=== PATIENT | male | born 1950 | race Caucasian/White ===

== ENCOUNTER 2017-03-22 14:00 | Inpatient (IN) | payer OTHER ==
[~2017-03-22] VITALS: Ht 172.7 cm; Wt 79.4 kg
[2017-03-22 14:01] VITALS: BP 141/77
[2017-03-22] MEDS ORDERED: CIALIS5 MG PO (14:27)
[2017-03-22] MEDS ORDERED: PRILOSEC 10MG C10 MG PO (14:27)
[2017-03-22] MEDS ORDERED: FISH OIL 1,001000 M2 PO (14:27)
[2017-03-22 14:34] LABS: HEMATOCRIT 36.2 % (42.0-52.0); HEMOGLOBIN 12.5 gm/dL (14.0-18.0); MCH 29.9 pg (26.0-34.0); MCHC 34.4 g/dL (28.0-37.0); MCV 86.8 fL (80.0-100.0); RBC 4.17 mil/uL (4.50-6.00); RDW 15.3 % (10.5-14.5); WBC 8.1 thou/uL (4.0-11.0)
[2017-03-22 14:54] LABS: CALCIUM 8.8 mg/dL (8.5-10.1); CREATININE 0.9 mg/dL (0.7-1.3); POTASSIUM 3.8 mmol/L (3.5-5.1)
[2017-03-22 15:08] LABS: APTT 25.9 Seconds (24.5-32.8); PROTIME 9.8 Seconds (9.3-11.4)
[2017-03-22 15:52] VITALS: BP 116/70
[2017-03-22 16:31] VITALS: BP 120/70
[2017-03-22 17:00] VITALS: BP 136/78
[2017-03-23 03:42] LABS: HEMATOCRIT 35.4 % (42.0-52.0); MCH 29.5 pg (26.0-34.0); MCHC 33.9 g/dL (28.0-37.0); MCV 86.8 fL (80.0-100.0); PLATELET COUNT 134 thou/uL (150-400); RBC 4.08 mil/uL (4.50-6.00); WBC 6.5 thou/uL (4.0-11.0)
[2017-03-23 03:46] LABS: MANUAL DIFF YES
[2017-03-23 04:08] LABS: CREATININE 0.9 mg/dL (0.7-1.3); MAGNESIUM 2.2 mg/dL (1.8-2.4); POTASSIUM 4.2 mmol/L (3.5-5.1)
[2017-03-23 04:35] VITALS: BP 109/65
[2017-03-23 05:42] LABS: ABSOLUTE NEUTROPHILS 4.2 thou/uL (1.4-8.2); ATYPICAL LYMPHS 3 %; TOTAL CELL COUNT 100
[2017-03-23 08:24] VITALS: BP 121/64
[2017-03-23] MEDS ORDERED: ELIQUIS5 MG PO (11:01)
[2017-03-23 12:25] VITALS: BP 121/64
[2017-03-25 13:14] LABS: PROTEIN C ANTIGEN* 88 % (60-150)
== END 2017-03-23 13:54 | disposition home or self-care (01) | DRG 301 ==
LOC: ER 14:00 → EROBS 15:24 → 4S 15:24 → ENTRNSPT 03-23 13:17 → EDTRNSPTSTS 03-23 13:20 → 4S 03-23 13:54
PROVIDERS: Emergency Medicine; Nurse Practitioner
DX: I82.411 Acute embolism and thrombosis of right femoral vein (principal); N40.0 Benign prostatic hyperplasia without lower urinary tract symptoms; K21.9 Gastro-esophageal reflux disease without esophagitis; I82.431 Acute embolism and thrombosis of right popliteal vein; Z87.891 Personal history of nicotine dependence
CPT/HCPCS: 10100